=== PATIENT | female | born 1955 ===

== ENCOUNTER → 2016-07-19 | Outpatient (CLI) | payer MEDICARE, MEDICAID ==
[~2016-07-19] MED LIST: ACETAMINOPHEN650 M1 PO; ALBUTEROL2.5 MG/31 INH; AMBIEN5 MG PO; ARTIFICIAL TEA1 EACH OPHTH; AUBAGIO14 MG PO; CATHETER; CELEXA20 MG PO; DIPROSONE CREAM15 GM TOP; DITROPAN5 MG PO; DULCOLAX10 MG R; GLUCAGON/GLUCAGE1 MG IM; GLUCOSE GEL38 GM PO; HEATING PAD1 EACH; LASIX40 M1 PO; LEVOTHROID (SY25 MCG PO; LIPITOR10 MG PO; LISINOPRIL5 MG PO; LOPID600 MG PO; LOPRESSOR50 MG PO; LYRICA 150MG C150 MG PO; MAG-OX-400(241400 MG PO; MILK OF MA400 MG/5 M PO; MIRALAX17 GM PO; NORCO 5-325 MG1 TAB PO; NYSTATIN1 EAC1 TOP; OS-CAL 250 MG+D1 TAB PO; OXYGEN M-15 INH; PRILOSEC20 MG PO; SALINE NASAL SP88 ML INH; THERAGRAN-M1 TAB PO; TRAMADOL HCL50 MG PO; VITAMIN B-121000 MCG PO; VITAMIN D-32000 UNI1 PO; ZANAFLEX4 MG PO
== END | disposition disaster alternative care site (69) ==
DX: E78.5 Hyperlipidemia, unspecified (principal); E03.9 Hypothyroidism, unspecified

== ENCOUNTER → 2016-10-26 | Outpatient (CLI) | payer MEDICARE, MEDICAID | END | disposition disaster alternative care site (69) | LOC: GBCOE 13:00 | DX: Z12.31 Encounter for screening mammogram for malignant neoplasm of breast (principal) ==